=== PATIENT | male | born 1945 | race Caucasian/White ===

== ENCOUNTER → 2020-09-20 | Outpatient (CLI) | payer OTHER ==
[~2020-09-20] MED LIST: MAXZIDE 50 MG-71 TA1 PO; NORVASC5 MG PO; PRILOSEC20 MG PO; ZOCOR20 MG PO
== END | disposition home or self-care (01) ==
LOC: CT 09:47
PROVIDERS: ATTEND Internal Medicine Rheumatology
DX: D89.89 Other specified disorders involving the immune mechanism, not elsewhere classified (principal); Z86.2 Personal history of diseases of the blood and blood-forming organs and certain disorders involving the immune mechanism; I10 Essential (primary) hypertension

== ENCOUNTER → 2021-07-17 | Outpatient (CLI) | payer OTHER | END | disposition home or self-care (01) | LOC: CT 13:00 | PROVIDERS: ATTEND Internal Medicine | DX: R91.1 Solitary pulmonary nodule (principal) ==

== ENCOUNTER 2021-10-21 14:24 | Emergency (ER) | payer MEDICARE ==
[~2021-10-21] VITALS: Ht 172.7 cm; Wt 91.2 kg
[2021-10-21 14:58] LABS: BASO # 0.1 10*3/uL (0.0-0.1); BASO % 0.6 % (0.0-1.0); EOS # 0.1 10*3/uL (0.0-0.4); EOS % 0.6 % (1.0-4.0); HEMATOCRIT 43.9 % (42.0-52.0); LYMPH # 0.9 10*3/uL (1.3-4.4); LYMPH % 11.3 % (27.0-41.0); MEAN CELL VOLUME 94.8 fl (80.0-94.0); MEAN CORPUSCULAR HGB 31.1 pg (27.0-31.0); MEAN CORPUSCULAR HGB CONC 32.8 g/dl (33.0-37.0); MEAN PLATELET VOLUME 12.1 fl (9.6-12.3); MONO # 0.6 10*3/uL (0.1-1.0); MONO % 7.2 % (3.0-9.0); NEUT # 6.5 10*3/uL (2.3-7.9); NEUT % 79.9 % (47.0-73.0); PLATELET COUNT AUTOMATED 177 10*3/uL (130-400); RED BLOOD COUNT 4.63 10*6/uL (4.50-5.90); RED CELL DISTRI WIDTH 13.7 % (0-14.5); WHITE BLOOD COUNT 8.1 10*3/uL (4.8-10.8)
[2021-10-21 15:09] LABS: ACT PARTIAL THROMBO TIME 24.5 SECONDS (20.0-32.1); INTERNATIONAL NORM RATIO 0.9 (2.0-3.5)
[2021-10-21 15:18] LABS: CREATININE 1.5 mg/dL (0.70-1.30); POTASSIUM 4.3 mmol/L (3.5-5.1); TOTAL PROTEIN 7.1 gm/dL (6.4-8.2)
[2021-10-21] MEDS ORDERED: ZYLOPRIM100 MG PO (16:32)
[2021-10-21] MEDS ORDERED: ASPIRIN ADULT L81 M1 PO (16:34)
== END 2021-10-21 18:09 | disposition home or self-care (01) ==
LOC: ED 14:24
PROVIDERS: Emergency Medicine
DX: S63.276A Dislocation of unspecified interphalangeal joint of right little finger, initial encounter (principal); Z79.899 Other long term (current) drug therapy; W18.39XA Other fall on same level, initial encounter; Y93.89 Activity, other specified; Y92.89 Other specified places as the place of occurrence of the external cause; Y99.8 Other external cause status

== ENCOUNTER → 2025-07-22 | Outpatient (CLI) | payer OTHER ==
[~2025-07-22] MED LIST changes: +ASPIRIN ADULT L81 M1 PO; +ZYLOPRIM100 MG PO
== END | disposition home or self-care (01) ==
LOC: CT 09:47
PROVIDERS: ATTEND Internal Medicine
DX: J98.11 Atelectasis (principal); R05.3 Chronic cough; Z98.890 Other specified postprocedural states; Z72.0 Tobacco use